=== PATIENT | male | born 1990 | race Two or more races ===

== ENCOUNTER 2017-08-14 15:25 | Emergency (ER) | payer SELFPAY ==
[~2017-08-14] VITALS: Ht 165.1 cm; Wt 64.4 kg
[2017-08-14] MEDS ORDERED: ATIVAN1 MG PO (18:29)
[2017-08-14 18:51] VITALS: BP 113/67
== END 2017-08-14 18:52 | disposition home or self-care (01) ==
LOC: EME 15:25
DX: F32.9 Major depressive disorder, single episode, unspecified (principal); R45.1 Restlessness and agitation; F17.200 Nicotine dependence, unspecified, uncomplicated
CPT/HCPCS: 99281; 99283